=== PATIENT | male | born 1995 | race African-American/Black ===

== ENCOUNTER 2020-03-09 00:07 | Emergency (ER) | payer OTHER ==
[~2020-03-09] VITALS: Ht 193 cm; Wt 81.8 kg
[2020-03-09 01:09] LABS: APPEARANCE,URINE CLOUDY (CLEAR); BILIRUBIN,URINE NEGATIVE (NEGATIVE); GLUCOSE, URINE (UA) NEGATIVE (NEGATIVE); KETONES,URINE NEGATIVE (NEGATIVE); LEUKOCYTE ESTERASE ,URINE NEGATIVE (NEGATIVE); NITRATE,URINE NEGATIVE (NEGATIVE); OCCULT BLOOD,URINE NEGATIVE (NEGATIVE); PH,URINE 7.5 (5.0-8.0); PROTEIN,URINE NEGATIVE (NEGATIVE)
[2020-03-09 01:55] VITALS: BP 130/68
[2020-03-09] MEDS ORDERED: CefTRIAXone SODIUM 1 GM/VIAL IM ONE (02:15)
[2020-03-09] MEDS ORDERED: LIDOCAINE/PF 1% 2 ML VIAL IM ONE (02:15)
[2020-03-09] MEDS ORDERED: AZITHROMYCIN 500 MG TABLET PO ONE (02:15)
== END 2020-03-09 02:32 | disposition home or self-care (01) ==
LOC: EMS 00:07
DX: N34.2 Other urethritis (principal)
CPT/HCPCS: 81003; 87491; 87591; 96372; 99283; J0696; J3490